=== PATIENT | female | born 1945 | race Caucasian/White ===

== ENCOUNTER → 2019-02-12 | Outpatient (CLI) | payer OTHER | END | disposition home or self-care (01) | LOC: LAB 16:27 | PROVIDERS: ATTEND Internal Medicine | DX: R93.1 Abnormal findings on diagnostic imaging of heart and coronary circulation (principal) | CPT/HCPCS: 80048 ==

== ENCOUNTER → 2019-02-13 | Outpatient (CLI) | payer OTHER ==
[~2019-02-13] MED LIST: DILTIAZEM 25 MG INJ IV ONE; IOHEXOL 100 ML ONE; METOPROLOL (XL) 25 MG TAB PO ONE; METOPROLOL 100 MG TAB ONE; METOPROLOL 100 MG TAB PO ONE; METOPROLOL 5 MG INJ IV ONE; METOPROLOL 5 MG INJ ONE; NITROGLYCERIN AEROSOL (4.9 GM) ONE; NITROGLYCERIN AEROSOL (4.9 GM) SL ONE; SOD CHLORIDE 0.9% 100 ML ONE
== END | disposition home or self-care (01) ==
LOC: C/S 13:50
PROVIDERS: ATTEND Internal Medicine
DX: R93.1 Abnormal findings on diagnostic imaging of heart and coronary circulation (principal); R07.9 Chest pain, unspecified
CPT/HCPCS: 75571; 75574; Q9967; Z7610